=== PATIENT | male | born 1985 | race Caucasian/White ===

== ENCOUNTER 2021-08-19 09:32 | Emergency (ER) | payer MEDICAID, OTHER ==
[~2021-08-19] VITALS: Ht 167.6 cm; Wt 81.6 kg
[2021-08-19] MEDS ORDERED: ONDANSETRON 4 MG/2 ML VIAL IV ONE (09:45)
[2021-08-19] MEDS ORDERED: IV NORMAL SALINE 1000 ML BAG IV ONE (09:45)
[2021-08-19] MEDS ORDERED: PANTOPRAZOLE SODIUM IV 80 MG in IV DEXTROSE 5% 100 ML IV ONE (09:45)
[2021-08-19] MEDS ORDERED: PANTOPRAZOLE SODIUM 40 MG VIAL ONE (10:04)
[2021-08-19] MEDS ORDERED: ONDANSETRON 4 MG/2 ML VIAL ONE (10:04)
--- NOTE | 2021-08-19 10:19 | NUR ---
Patient is resting comfortably on gurney with eyes closed, pending telemetry admission@this time.
[2021-08-19 10:32] LABS: *OCCULT BLOOD STOOL NEGATIVE (NEGATIVE)
[2021-08-19 10:35] LABS: ALANINE AMINOTRANSFERASE 15 U/L (16-63); ALKALINE PHOSPHATASE 112 U/L (50-136); ASPARTATE AMINOTRANSFERASE 59 U/L (15-37); BILIRUBIN,DIRECT 3.3 mg/dL (0.0-0.2); BILIRUBIN,TOTAL 4.5 mg/dL (0.2-1.0); CARBON DIOXIDE 21 mmol/L (21-32); CHLORIDE 97 mmol/L (98-107); CREATININE 1.2 mg/dL (0.6-1.3); GLUCOSE 118 mg/dL (74-106); TOTAL PROTEIN, SERUM 7.7 g/dL (6.4-8.2); UREA NITROGEN, BLOOD 7 mg/dL (7-18)
[2021-08-19 10:38] LABS: ETHANOL 132 MG/DL (0-0)
[2021-08-19 10:44] LABS: POTASSIUM 2.8 mmol/L (3.5-5.1)
[2021-08-19 10:49] LABS: HEMATOCRIT 26.4 % (36.7-47.1); MEAN CORPUSCULAR HEMOGLOBIN 33.5 uug (23.8-33.4); MEAN CORPUSCULAR VOLUME 95.5 fL (73.0-96.2)
[2021-08-19 10:54] LABS: PLATELET COUNT (AUTO) 28 K/uL (152-348)
[2021-08-19 11:23] LABS: LIPASE 220 U/L (73-393)
[2021-08-19] MEDS ORDERED: POTASSIUM CHLORIDE 20 MEQ TAB.PRT.SR PO ONE (11:45)
[2021-08-19] MEDS ORDERED: POTASSIUM CHLORIDE 50 ML IV SCH (11:45)
[2021-08-19] MEDS ORDERED: POTASSIUM CHLORIDE 20 MEQ TAB.PRT.SR ONE (12:03)
[2021-08-19] MEDS ORDERED: POTASSIUM CHLORIDE 50 ML ONE (12:03)
--- NOTE | 2021-08-19 13:00 | NUR ---
Patient is waiting for insurance authorization to admit this patient in a telemetry unit in our [place] [facility]. No acute change in condition seen.
[2021-08-19 13:08] LABS: *BILIRUBIN,URIN NEGATIVE (NEGATIVE); *BLOOD, URINE NEGATIVE (NEGATIVE); *CLARITY,URINE CLEAR (CLEAR); *COLOR,URINE YELLOW (YELLOW); *KETONES,URINE NEGATIVE (NEGATIVE); LEUKOCYTE ESTERASE ,URINE NEGATIVE (NEGATIVE); NITRITE, URINE NEGATIVE (NEGATIVE); PH,URINE 6.5 (5.0-8.0); UGLUCOSE NEGATIVE (NEGATIVE)
--- NOTE | 2021-08-19 15:24 | NUR ---
Patient will tranfer to outside Facility: [facility] Physician:Alex Location: 218-A RN: Elvis chapa SBAR ALS ambulance: [facility] ambulance [id number] per Cecil
--- NOTE | 2021-08-19 15:57 | NUR ---
Patient was seen and heard earlier talking to his spouse via cellphone. Patient is now more alert and awake. Patient is MD britney notified.
--- NOTE | 2021-08-19 17:25 | NUR ---
Patient wants to leave, MD notified.
--- NOTE | 2021-08-19 17:43 | NUR ---
Patient did not wish to proceed with medical care recommended by Dr. Willson. Patient was given information related to possible complications, up to and including , which could occur as a result of leaving the hospital at this time. Patient verbalized understanding of risks involved due to leaving against medical advice. Patient signed AMA form. Patient took all his belongings. IV removed. Catheter intact and site benign. Pressure and 4x4 gauze applied to site. No bleeding noted. Patient said that his spouse will pick him up. Cecil- patient's insurance claims clerk notified. [facility] notified.
[2021-08-19 19:08] LABS: BAND % (MANUAL) 8 % (0-10); LYMPHOCYTES % (MANUAL) 34 % (20-40); MONOCYTES % (MANUAL) 2 % (2-10); NEUTROPHILS % (MANUAL) 56 % (42-75)
== END 2021-08-19 17:43 | disposition left against medical advice (07) ==
LOC: ER 09:32
DX: R53.1 Weakness (principal); F10.229 Alcohol dependence with intoxication, unspecified; K70.30 Alcoholic cirrhosis of liver without ascites; Y90.6 Blood alcohol level of 120-199 mg/100 ml; E87.70 Fluid overload, unspecified; D61.818 Other pancytopenia; E87.6 Hypokalemia; E87.1 Hypo-osmolality and hyponatremia; R79.1 Abnormal coagulation profile; Z20.822 Contact with and (suspected) exposure to COVID-19; Z53.29 Procedure and treatment not carried out because of patient's decision for other reasons; E88.09 Other disorders of plasma-protein metabolism, not elsewhere classified; K76.89 Other specified diseases of liver; R09.89 Other specified symptoms and signs involving the circulatory and respiratory systems; K74.60 Unspecified cirrhosis of liver; R60.0 Localized edema
CPT/HCPCS: 36415; 71045; 80048; 80076; 80320; 81003; 82140; 82270; 82962; 83605 ×2; 83690; 83880; 84484; 85007; 85025; 85610; 87040 ×2; 87426; 93005; 96361; 96365; 96367; 96375; 99291; C9113; J2405; J3480; J7060; 70030-TC; A4663; G0480; J7030

== ENCOUNTER 2023-06-17 15:24 | Emergency (ER) | payer OTHER ==
[~2023-06-17] VITALS: Ht 172.7 cm; Wt 81.6 kg
[2023-06-17 16:29] LABS: BASOPHILS % (AUTO) 2.1 % (0.0-2.0); EOSINOPHILS # (AUTO) 0.1 K/uL (0.0-0.7); EOSINOPHILS % (AUTO) 2.9 % (0.0-7.0); HEMATOCRIT 29.9 % (36.7-47.1); HEMOGLOBIN 9.7 g/dL (12.5-16.3); LYMPHOCYTES # (AUTO) 1.1 K/uL (0.8-4.8); MEAN CORPUSCULAR HEMOGLOBIN 32.1 uug (23.8-33.4); MEAN CORPUSCULAR HGB CONC 33 g/dL (32.5-36.3); MEAN CORPUSCULAR VOLUME 98.7 fL (73.0-96.2); MONOCYTES # (AUTO) 0.4 K/uL (0.1-1.30); NEUTROPHILS # (AUTO) 0.7 K/uL (1.8-8.9); NEUTROPHILS % (AUTO) 29.3 % (38.5-71.5); PLATELET COUNT (AUTO) 71 K/uL (152-348); RED BLOOD CELL COUNT(AUTO) 3.03 MIL/uL (4.06-5.63); RED CELL DISTRIBUTION WIDTH 19.6 % (12.1-16.2); WHITE BLOOD COUNT (AUTO) 2.3 K/uL (3.6-10.2)
[2023-06-17 16:30] LABS: DIFFERENTIAL COMMENT 1; LYMPHOCYTES % (AUTO) 51.7 % (20.5-51.5)
[2023-06-17 16:42] LABS: ETHANOL 164 MG/DL (0-10)
[2023-06-17 16:43] LABS: AMMONIA 78 umol/L (11-32)
[2023-06-17 16:47] LABS: ALANINE AMINOTRANSFERASE 17 U/L (16-63); ALBUMIN 2.4 g/dL (3.4-5.0); ALKALINE PHOSPHATASE 164 U/L (50-136); ASPARTATE AMINOTRANSFERASE 48 U/L (15-37); BILIRUBIN,DIRECT 2.3 mg/dL (0.0-0.2); BILIRUBIN,TOTAL 3.4 mg/dL (0.2-1.0); CALCIUM 8.1 mg/dL (8.5-10.1); CARBON DIOXIDE 25 mmol/L (21-32); CHLORIDE 107 mmol/L (98-107); CREATININE 0.9 mg/dL (0.6-1.3); GLUCOSE 123 mg/dL (74-106); POTASSIUM 3.4 mmol/L (3.5-5.1); SODIUM SERUM 144 mmol/L (136-145); UREA NITROGEN, BLOOD 6 mg/dL (7-18)
[2023-06-17 16:55] LABS: ACETAMINOPHEN < 2.0 ug/mL (10-30)
[2023-06-17 17:19] LABS: THYROID STIMULATING HORMONE 1.034 mIU/mL (0.358-3.740)
[2023-06-17 21:34] LABS: *BILIRUBIN,URIN NEGATIVE (NEGATIVE); *BLOOD, URINE NEGATIVE (NEGATIVE); *CLARITY,URINE CLEAR (CLEAR); *COLOR,URINE YELLOW (YELLOW); *KETONES,URINE NEGATIVE (NEGATIVE); *PROTEIN,URINE NEGATIVE (NEGATIVE); *UROBILINOGEN,URINE 0.2 E.U./dl (NORMAL); LEUKOCYTE ESTERASE ,URINE NEGATIVE (NEGATIVE); NITRITE, URINE NEGATIVE (NEGATIVE); UGLUCOSE NEGATIVE (NEGATIVE)
[2023-06-17 21:50] LABS: *AMPHETAMINE, URINE NEGATIVE (NEGATIVE); *BARBITURATE, URINE NEGATIVE (NEGATIVE); *BENZODIAZEPINE, URINE POSITIVE (NEGATIVE); *CANNABINOID, URINE POSITIVE (NEGATIVE); *COCCAINE, URINE NEGATIVE (NEGATIVE); *OPIATE, URINE NEGATIVE (NEGATIVE); *PHENCYCLIDINE SCREEN,URINE NEGATIVE (NEGATIVE); FENTANYL, URINE NEGATIVE (NEGATIVE)
[2023-06-17] MEDS ORDERED: KETOROLAC TROMETHAMINE 30 MG INJ ONE (22:07)
[2023-06-17] MEDS ORDERED: IV NORMAL SALINE 500 ML IV ONE (22:15)
[2023-06-17] MEDS ORDERED: KETOROLAC TROMETHAMINE 30 MG INJ IVP ONE (22:15)
[2023-06-18 06:35] VITALS: BP 131/85; TEMP 98; O2SAT 99
== END 2023-06-18 06:00 | disposition home or self-care (01) ==
LOC: ER 15:24
DX: F10.129 Alcohol abuse with intoxication, unspecified (principal); D61.818 Other pancytopenia; R07.89 Other chest pain; R51.9 Headache, unspecified; Z59.00 Homelessness unspecified; Y90.6 Blood alcohol level of 120-199 mg/100 ml
CPT/HCPCS: 80076; 80048; 81003; 82140; 84443; 85025; 85379; 85730; 87040 ×3; 84484 ×2; 36415; 93005 ×2; 71045; 70450; 93970; 99285; 96361; 96374; 83605; 80299; 80320; 80307; J1885; A4663; G0480